=== PATIENT | male | born 1935 | race Two or more races ===

== ENCOUNTER 2016-11-02 07:25 | Emergency (ER) | payer MEDICARE ==
[~2016-11-02] VITALS: Ht 185.4 cm; Wt 77.0 kg
[2016-11-02] MEDS ORDERED: VANCOMYCIN PER PHARMACY MC ONE (08:30)
[2016-11-02] MEDS ORDERED: VANCOMYCIN 1,500 MG in SODIUM CHLORIDE 0.9% 250 ML IV ONE (08:30)
[2016-11-02] MEDS ORDERED: PLEASE ENTER ALLERGIES MC SCH ×2 (08:30)
[2016-11-02 09:21] LABS: ASPARTATE AMINO TRANSFERASE 18 U/L (15-37); BLOOD UREA NITROGEN 14 mg/dL (7-18)
[2016-11-02 10:34] VITALS: BP 144/78
== END 2016-11-02 12:01 | disposition home or self-care (01) ==
LOC: ED 10:09
DX: S20.212A Contusion of left front wall of thorax, initial encounter (principal); N40.0 Benign prostatic hyperplasia without lower urinary tract symptoms; I10 Essential (primary) hypertension; E11.9 Type 2 diabetes mellitus without complications; I48.2 Chronic atrial fibrillation; Z95.0 Presence of cardiac pacemaker; Y71.8 Miscellaneous cardiovascular devices associated with adverse incidents, not elsewhere classified
CPT/HCPCS: 36415; 71020; 80053; 85025; 85610; 87040; 93005

== ENCOUNTER 2016-11-22 09:55 | Day surgery (SDC) | payer MEDICARE ==
[~2016-11-22] VITALS: Ht 185.4 cm; Wt 76.8 kg
[2016-11-22] MEDS ORDERED: MIDAZOLAM 1 MG/ML, 5ML ONE (10:55)
[2016-11-22] MEDS ORDERED: LIDOCAINE 2%, 20ML ONE ×2 (10:55→11:13)
[2016-11-22] MEDS ORDERED: FENTANYL PF 100 MCG/2ML ONE (10:55)
[2016-11-22] MEDS ORDERED: SODIUM CHLORIDE 0.9% 1,000 ML IV SCH (11:04)
[2016-11-22] MEDS ORDERED: CEFAZOLIN PMX 1GM/50ML 50 ML ONE (11:13)
[2016-11-22] MEDS ORDERED: CEFAZOLIN 1,000 MG ONE (11:13)
[2016-11-22 11:16] VITALS: BP 153/93
[2016-11-22] MEDS ORDERED: GLIM1TAB2 PO (11:27)
[2016-11-22] MEDS ORDERED: FINA5TAB4 PO (11:27)
[2016-11-22] MEDS ORDERED: APIX5TAB PO (11:27)
[2016-11-22] MEDS ORDERED: METO25TA35 PO (11:27)
[2016-11-22] MEDS ORDERED: SITA1TAB5 PO (11:27)
[2016-11-22] MEDS ORDERED: EZET1TAB4 PO (11:27)
[2016-11-22] MEDS ORDERED: PLEASE ENTER HEIGHT AND WEIGHT MC SCH (11:30)
[2016-11-22] MEDS ORDERED: CEFAZOLIN PMX 1GM/50ML 50 ML IVPB ONE (11:30)
[2016-11-22 11:52] LABS: ASPARTATE AMINO TRANSFERASE 16 U/L (15-37); BLOOD UREA NITROGEN 16 mg/dL (7-18)
[2016-11-22] MEDS ORDERED: OXYcodone/APAP 5/325MG TABLET PO ONE (14:30)
[2016-11-22] MEDS ORDERED: OXYC-302 PO (14:34)
[2016-11-22] MEDS ORDERED: CEPH-368 PO (14:38)
[2016-11-22] MEDS ORDERED: OXYcodone/APAP 5/325MG TABLET ONE (15:38)
== END 2016-11-22 16:13 ==
LOC: CACL 09:55
PROVIDERS: ATTEND Internal Medicine Cardiovascular Disease
DX: I97.638 Postprocedural hematoma of a circulatory system organ or structure following other circulatory system procedure (principal); I10 Essential (primary) hypertension; E11.9 Type 2 diabetes mellitus without complications; I48.1 Persistent atrial fibrillation; E78.2 Mixed hyperlipidemia; Z79.01 Long term (current) use of anticoagulants; Z95.0 Presence of cardiac pacemaker
CPT/HCPCS: 10140; 36415; 80053; 85025; 85610; 99156; 99157; J0690; J2250; J3010; J3490